=== PATIENT | male | born 1970 | race Caucasian/White ===

== ENCOUNTER 2019-05-03 19:56 | Emergency (ER) | payer OTHER ==
[~2019-05-03] VITALS: Ht 167.6 cm; Wt 88.5 kg
[2019-05-03] MEDS ORDERED: SINGULAIR5 MG (20:06)
[2019-05-03] MEDS ORDERED: NASAL MIST126 ML (20:07)
[2019-05-03] MEDS ORDERED: PROTONIX40 MG (20:07)
[2019-05-03] MEDS ORDERED: ALLEGRA ALLERG180 MG (20:07)
== END 2019-05-03 23:13 | disposition home or self-care (01) ==
LOC: ER 19:56
DX: K59.09 Other constipation (principal); R10.13 Epigastric pain

== ENCOUNTER → 2020-09-15 10:55 | Outpatient (CLI) | payer OTHER ==
[~2020-09-15 10:55] MED LIST: ALLEGRA ALLERG180 MG; ALLEGRA PO; FLUTICASONE-SA1 EAC5; MIRALAX17 GM PO; NASAL MIST126 ML; NEURONTIN300 MG PO; PROTONIX40 MG; SINGULAIR10 MG PO; SINGULAIR5 MG; SPIRIVA RESPIMAT4 G1 IH; TESSALON PERLE100 M1 PO; TYLENOL ARTHRI650 MG PO; ULTRAM50 MG PO
== END | disposition home or self-care (01) ==
LOC: LAB 10:55
PROVIDERS: ATTEND Surgery
DX: I10 Essential (primary) hypertension (principal); R10.84 Generalized abdominal pain; Z03.818 Encounter for observation for suspected exposure to other biological agents ruled out

== ENCOUNTER 2020-09-17 10:32 | Day surgery (SDC) | payer OTHER ==
[~2020-09-17 10:32] MED LIST changes: -MIRALAX17 GM PO; -NEURONTIN300 MG PO; -TESSALON PERLE100 M1 PO; -TYLENOL ARTHRI650 MG PO; -ULTRAM50 MG PO
[2020-09-17] MEDS ORDERED: TYLENOL ARTHRI650 MG PO (20:38)
[2020-09-17] MEDS ORDERED: MIRALAX17 GM PO (20:38)
[2020-09-17] MEDS ORDERED: NEURONTIN300 MG PO (20:38)
[2020-09-17] MEDS ORDERED: ULTRAM50 MG PO (20:38)
[2020-09-17] MEDS ORDERED: TESSALON PERLE100 M1 PO (20:41)
== END 2020-09-18 02:40 | disposition home or self-care (01) ==
LOC: CIR.AMB 10:32
PROVIDERS: ATTEND Surgery
DX: K40.90 Unilateral inguinal hernia, without obstruction or gangrene, not specified as recurrent (principal); Z20.822 Contact with and (suspected) exposure to COVID-19